=== PATIENT | male | born 1970 | race Caucasian/White ===

== ENCOUNTER 2019-04-03 12:24 | Outpatient (CLI) | payer BC ==
[2019-04-03 13:54] LABS: ALANINE AMINOTRANSFERASE 53 U/L (12-78); ALBUMIN 3.9 G/DL (3.4-5.0); ALBUMIN/GLOBULIN RATIO 1.1 (1.1-1.5); ALKALINE PHOSPHATASE 83 IU/L (46-116); ANION GAP 5 (8-16); ASPARTATE AMINO TRANSFERASE 25 U/L (10-37); BILIRUBIN,TOTAL 0.4 MG/DL (0.1-1.0); BLOOD UREA NITROGEN 20 MG/DL (7-18); BUN/CREATININE RATIO 24.4 (5.4-32.0); CALCIUM 9.4 MG/DL (8.5-10.1); CHLORIDE 103 MMOL/L (99-107); CREATININE 0.82 MG/DL (0.60-1.10); GLUCOSE 100 MG/DL (70-104); SODIUM 137 MMOL/L (135-145); TOTAL CARBON DIOXIDE 29.1 MMOL/L (24-32); TOTAL PROTEIN 7.5 G/DL (6.4-8.2); eGFR > 90 ML/MIN
[2019-04-03 14:00] LABS: BASOPHILS % (AUTO) 0.5 % (0-1); EOSINOPHILS # (AUTO) 0.3 X10'3 (0-0.9); EOSINOPHILS % (AUTO) 4.2 % (0-6); HEMATOCRIT 46.1 % (42.0-52.0); HEMOGLOBIN 15.5 g/dl (14.0-17.9); LYMPHOCYTES # (AUTO) 1.8 X10'3 (1.1-4.8); LYMPHOCYTES % (AUTO) 27.1 % (21-51); MEAN CORPUSCULAR HEMOGLOBIN 30.3 PG (27.0-31.0); MEAN CORPUSCULAR HGB CONC 33.7 g/dL (33.0-36.5); MEAN CORPUSCULAR VOLUME 89.7 FL (78-98); MEAN PLATELET VOLUME 7.4 FL (7.4-10.4); MONOCYTES # (AUTO) 0.7 X10'3 (0-0.9); MONOCYTES % (AUTO) 10.6 % (2-12); NEUTROPHILS # (AUTO) 3.8 X10'3 (1.8-7.7); NEUTROPHILS % (AUTO) 57.6 % (42-75); PLATELET COUNT 246 X10'3 (140-440); RED BLOOD COUNT 5.13 X10'6 (4.70-6.10); RED CELL DISTRIBUTION WIDTH 13.4 % (11.5-14.5); WHITE BLOOD COUNT 6.6 X10'3 (4.5-11.0)
[2019-04-03 14:05] LABS: PARTIAL THROMBOPLASTIN TIME 30 SECONDS (22-32)
== END 2019-04-03 23:59 | disposition home or self-care (01) ==
LOC: LAB 12:24
PROVIDERS: ATTEND Otolaryngology
DX: D69.1 Qualitative platelet defects (principal)
CPT/HCPCS: 36415; 80053; 85025; 85576; 85610; 85730

== ENCOUNTER 2020-12-23 02:05 | Emergency (ER) | payer BC ==
[~2020-12-23] VITALS: Ht 182.9 cm; Wt 102.3 kg
[2020-12-23 02:10] VITALS: BP 141/110
[2020-12-23] MEDS ORDERED: triamcinolone acetonide 40mg/ml inj IM ONE (02:35)
[2020-12-23] MEDS ORDERED: HYDR-3965 PO (03:09)
[2020-12-23] MEDS ORDERED: acetaminophen 325mg tablet PO ONE (03:10)
[2020-12-23] MEDS ORDERED: morphine 4 MG/ML inj SYRINge IM ONE (03:10)
[2020-12-23] MEDS ORDERED: ondansetron 4mg rapidly disintigrating tab PO ONE (03:10)
[2020-12-23] MEDS ORDERED: LIDOcaine 1% 30ml preserv. free vial ONE (10:00)
== END 2020-12-23 03:30 | disposition home or self-care (01) ==
LOC: ER 02:05
DX: M25.511 Pain in right shoulder (principal); Z79.899 Other long term (current) drug therapy
CPT/HCPCS: 20552; 73030; 96372; 99284; J2001; J2270

== ENCOUNTER 2024-04-22 03:52 | Emergency (ER) | payer BC ==
[~2024-04-22] VITALS: Ht 180.3 cm; Wt 97.7 kg
[2024-04-22 04:23] LABS: BASOPHILS # (AUTO) 0.1 X10'3 (0-0.2); BASOPHILS % (AUTO) 0.5 % (0-1); EOSINOPHILS # (AUTO) 0.5 X10'3 (0-0.9); EOSINOPHILS % (AUTO) 4.8 % (0-6); HEMATOCRIT 48.8 % (42.0-52.0); HEMOGLOBIN 16.5 g/dl (14.0-17.9); LYMPHOCYTES # (AUTO) 2.6 X10'3 (1.1-4.8); LYMPHOCYTES % (AUTO) 26.7 % (21-51); MEAN CORPUSCULAR HEMOGLOBIN 31.1 PG (27.0-31.0); MEAN CORPUSCULAR HGB CONC 33.9 g/dL (33.0-36.5); MEAN CORPUSCULAR VOLUME 91.9 FL (78-98); MEAN PLATELET VOLUME 7.4 FL (7.4-10.4); MONOCYTES % (AUTO) 10.3 % (2-12); NEUTROPHILS # (AUTO) 5.7 X10'3 (1.8-7.7); NEUTROPHILS % (AUTO) 57.7 % (42-75); PLATELET COUNT 272 X10'3 (140-440); RED BLOOD COUNT 5.31 X10'6 (4.70-6.10); WHITE BLOOD COUNT 9.8 X10'3 (4.5-11.0)
[2024-04-22 04:32] VITALS: PULSE 84; RESP 16; O2SAT 98
[2024-04-22] MEDS: ipratropium/albuterol 3ml nebule NEB ONE (04:32)
[2024-04-22] MEDS: methylPREDNISolone sod succ 125mg/2ml vial IV ONE (04:33)
[2024-04-22 04:37] LABS: ALBUMIN 3.7 G/DL (3.4-5.0); ANION GAP 7 (8-16); BLOOD UREA NITROGEN 20 MG/DL (7-18); BUN/CREATININE RATIO 20.8 (10.0-20.0); CHLORIDE 104 MMOL/L (99-107); CREATININE 0.96 MG/DL (0.60-1.10); GLUCOSE 95 MG/DL (70-104); POTASSIUM 3.7 MMOL/L (3.5-5.1); SODIUM 140 MMOL/L (135-145); eCRCL 94 ML/MIN; eGFR 82 ML/MIN
[2024-04-22 04:41] VITALS: PULSE 103; RESP 16
[2024-04-22] MEDS: benzonatate 100mg capsule PO ONE (05:08)
[2024-04-22] MEDS ORDERED: PRED20TA PO (05:26)
[2024-04-22] MEDS ORDERED: AMOX-115 PO (05:26)
[2024-04-22] MEDS ORDERED: BENZ-38 PO (05:32)
[2024-04-22] MEDS: amox tr/potassium clavulanate 500mg/125mg TAB PO ONE (05:34)
[2024-04-22 05:42] VITALS: BP 128/78; PULSE 81; RESP 18; TEMP 98; O2SAT 95
== END 2024-04-22 05:44 | disposition home or self-care (01) ==
LOC: ER 03:54
DX: J45.909 Unspecified asthma, uncomplicated (principal); J22 Unspecified acute lower respiratory infection; J01.80 Other acute sinusitis; Z20.822 Contact with and (suspected) exposure to COVID-19; M54.9 Dorsalgia, unspecified
CPT/HCPCS: 36415; 70450; 71045; 72125; 80048; 84145; 84484; 85025; 87811; 93005; 94640; 96374; 99285; J2919; 94760